=== PATIENT | male | born 1990 | race Caucasian/White ===

== ENCOUNTER 2021-12-29 03:33 | Emergency (ER) | payer MEDICAID, SELFPAY ==
[2021-12-29 03:58] VITALS: BP 133/92; PULSE 87; RESP 20; TEMP 36.5; O2SAT 97; BMI 29.5
== END 2021-12-29 08:21 | disposition left against medical advice (07) ==
PROVIDERS: Emergency Provider Emergency Medicine
DX: K59.00 Constipation, unspecified (principal); K64.9 Unspecified hemorrhoids
CPT/HCPCS: 99281; 99282